=== PATIENT | female | born 1985 ===

== ENCOUNTER 2017-11-16 10:48 | Emergency (ER) | payer SELFPAY ==
[2017-11-16 12:50] VITALS: BP 117/67
--- NOTE | 2017-11-16 13:11 | UC ---
Complaint Female HPI - HPI Summary HPI Summary: notified by x-partner that he has chlamydia-she is concerned as she is having some discharge and want treatment and testing - History Of Current Complaint Chief Complaint: [facility]U Stated Complaint: POSSIBLE STD Time Seen by Provider: 11/16/17 12:48 Hx Obtained From: Patient Hx Last Menstrual Period: 08/08 ?: No Onset/Duration: Sudden Onset, Lasting Days, Still Present Timing: Constant Severity Initially: Moderate Severity Currently: Moderate Pain Intensity: 4 Pain Scale Used: 0-10 Numeric Character: Burning Aggravating Factor(s): [place], Urination Alleviating Factor(s): Nothing Associated Signs And Symptoms: Positive: Negative, Vaginal Bleeding/Discharge - Allergies/Home Medications Allergies/Adverse Reactions: Allergies Allergy/AdvReac Type Severity Reaction Status Date / Time No Known Allergies Allergy Verified 11/16/17 12:50 Home Medications: Home Medications NK [No Home Medications Reported] 11/16/17 [History Confirmed 11/16/17] PMH/Surg Hx/FS Hx/Imm Hx Previously Healthy: Yes - Surgical History Surgical History: None - Family History Known Family History: Positive: None - Social History Occupation: Unemployed Lives: With Family Alcohol Use: Occasionally Substance Use Type: None Smoking Status (MU): Light Every Day Tobacco Smoker Type: Cigarettes, eCigarettes Review of Systems Constitutional: Negative Skin: Negative Eyes: Negative ENT: Negative Respiratory: Negative Cardiovascular: Negative Gastrointestinal: Negative Genitourinary: Dysuria, Vaginal/Penile Discharge Motor: Negative Neurovascular: Negative Musculoskeletal: Negative Neurological: Negative Psychological: Negative Is Patient Immunocompromised?: No All Other Systems Reviewed And Are Negative: Yes Physical Exam Triage Information Reviewed: Yes Appearance: Well-Appearing, No Pain Distress, Well-Nourished Vital Signs: Initial Vital Signs Temp 98.0 F 11/16/17 12:46 Pulse 100 11/16/17 12:46 Resp 18 11/16/17 12:46 BP 117/67 11/16/17 12:46 Pulse Ox 97 11/16/17 12:46 Vital Signs Reviewed: Yes Eye Exam: Normal Eyes: Positive: Conjunctiva Clear ENT Exam: Normal ENT: Positive: Normal ENT inspection, Hearing grossly normal, Pharynx normal, Uvula midline. Negative: TMs normal, Tonsillar swelling, Tonsillar exudate, Trismus, Muffled voice, Hoarse voice, Dental tenderness, Sinus tenderness Dental Exam: Normal Neck exam: Normal Neck: Positive: Supple, Nontender Respiratory Exam: Normal Respiratory: Positive: No respiratory distress, No accessory muscle use Cardiovascular Exam: Normal Cardiovascular: Positive: Pulses Normal, Brisk Capillary Refill Abdominal Exam: Normal Abdomen Description: Positive: Nontender, No Organomegaly, Soft. Negative: CVA Tenderness (R), CVA Tenderness (L) Bowel Sounds: Positive: Present Musculoskeletal Exam: Normal Musculoskeletal: Positive: Strength Intact, ROM Intact, No Edema Neurological Exam: Normal Neurological: Positive: Alert, Muscle Tone Normal Psychological Exam: Normal Skin Exam: Normal UC Physical Exam Vital Signs On Initial Exam: Initial Vitals Temp Pulse Resp BP Pulse Ox 98.0 F 100 18 117/67 97 11/16/17 12:46 11/16/17 12:46 11/16/17 12:46 11/16/17 12:46 11/16/17 12:46 - Genitalia Exam Female Genitourinary: Normal External Exam, Normal Vaginal Exam Diagnostics - Laboratory Diagnostic Studies Completed/Ordered: upre (-), UA-+1 blood (menses started), (- ) nitrites, leukoesterace, sg >1.03 Complaint Female Dx - Course Course Of Treatment: zithromax and rocephin now, [facility] - Differential Dx/Diagnosis Provider Diagnoses: STD Exposure Discharge - Discharge Plan Condition: Stable Disposition: HOME Patient Education Materials: Chlamydia (ED), Sexually Transmitted Diseases (ED) Referrals: [facility] [place] [facility] [Outside] - If Needed [facility] [Outside] - If Needed [facility] [Outside] - As Soon As Possible
[2017-11-16] MEDS ORDERED: Azithromycin TAB* 250 MG PO ONE (13:30)
[2017-11-16] MEDS ORDERED: Lidocaine 1% MPF* 2 ML VIAL INJ ONE (13:31)
[2017-11-16] MEDS ORDERED: cefTRIAXone VIAL(*) 250 MG VIAL IM ONE (13:31)
--- NOTE | 2017-11-17 18:18 | UC ---
- Progress Note Progress Note: neg antionette, neg gardnerella dewayne 11/17/2017
== END 2017-11-16 14:10 | disposition home or self-care (01) ==
LOC: UCEAST 10:48
DX: Z20.2 Contact with and (suspected) exposure to infections with a predominantly sexual mode of transmission (principal)
CPT/HCPCS: 36415; 81003; 84702; 86592; 86703; 86706; 86803; 87340; 87480; 87491; 87510; 87591; 87661; 96372; 99212; A9270-GY; G0463; J0696